=== PATIENT | male | born 1960 | race Caucasian/White ===

== ENCOUNTER 2017-02-24 11:32 | Emergency (ER) | payer OTHER ==
[~2017-02-24] VITALS: Ht 170.2 cm; Wt 74.8 kg
[~2017-02-24 11:32] MED LIST: FLEXERIL10 MG PO; HUMALOG 100U100 U/ML SC; IBU-6600 MG PO; LANTUS SOLOS100 U/ML SC; PANTOPRAZOLE SO40 MG PO; VICODIN 300 MG-1 TAB PO
--- NOTE | 2017-02-24 11:51 | ED GENERAL ADULT ---
History of Present Illness General Chief Complaint: General Adult Stated Complaint: HIGH BLOOD SUGAR, VOMITING Source: patient, old records Exam Limitations: no limitations Vital Signs & Intake/Output Vital Signs & Intake/Output Vital Signs Date Time Temp Pulse Resp B/P B/P Pulse O2 O2 Flow FiO2 Mean Ox Delivery Rate 02/24 1637 98.7 62 16 150/84 98 Room Air 02/24 1350 99.0 72 20 148/68 95 Room Air 02/24 1135 99.4 83 15 144/76 96 Room Air Room Air Allergies Coded Allergies: No Known Allergies (02/24/17) Reconcile Medications Insulin Glargine,Hum.rec.anlog (Lantus Solostar) 100 UNIT/ML (3 ML) INSULN.PEN 24 UNITS SC QPM DM (Reported) Insulin Lispro (Humalog Kwikpen U-100) 100 UNIT/ML INSULN.PEN DM (Reported) Lisinopril 10 MG TABLET 1 TAB PO DAILY BP (Reported) Ondansetron (Zofran Odt) 4 MG TAB.RAPDIS 1 TAB SL TID nausea Oxycodone HCl 10 MG TABLET 1 TAB PO Q6H PAIN (Reported) Warfarin Sodium (Unknown Strength) TABLET (Unknown Dose) UNKNOWN (Reported) Triage Note: PT TO ED FOR C/C HIGH BLOOD SUGAR AND ABD PAIN, NAUSEA AND VOMITING SINCE LAST NIGHT, DENIES BLOOD. DENIES DIARRHEA. INCREASED THIRST, NO CHANGE IN URINATION. F/S 214 IN TRIAGE. Triage Nurses Notes Reviewed? yes Onset: Abrupt Duration: hour(s):, day(s): (yesterday) Timing: single episode today Severity: moderate, severe Severity Numbers: 10 No Modifying Factors: none HPI: 48-year-old male with history of insulin-dependent diabetes presents complaining of abdominal pain, nausea vomiting sweats and chills for the past day. Patient reports that yesterday abdominal pain started suddenly and is located diffusely in his abdomen and does not radiate. He rates pain as a 10 out of 10. Pain is associated with nausea and vomiting. He feels as though this is similar to previous episodes where he was diagnosed with DKA. He has not used his insulin yet today but usually uses 24 units of Lantus once daily and insulin sliding scale insulin as needed. He has not been compliant with insulin in the past he feels his sugars usually run in the high 100s to low 200s. No diarrhea fever urinary symptoms chest pain shortness of breath. (KORIN BERGER PA-C) Past History Travel History Traveled to [place] past 21 day No Medical History Any Pertinent Medical History? see below for history Neurological: NEUROPATHY Cardiovascular: hypertension Endocrine: DIABETES TYPE I Blood Disorders: NONE Cancer(s): NONE Surgical History Surgical History: non-contributory Psychosocial History Who do you live with Patient/Self What is your primary language [place] Tobacco Use: Never used ETOH Use: denies use Illicit Drug Use: denies illicit drug use Family History Hx Contributory? Yes (KORIN BERGER PA-C) Review of Systems Review of Systems Constitutional: Reports: see HPI, chills, diaphoresis, weakness. EENTM: Reports: no symptoms. Respiratory: Reports: no symptoms. Cardiovascular: Reports: no symptoms. GI: Reports: see HPI, abdominal pain, nausea, vomiting. Genitourinary: Reports: no symptoms. Musculoskeletal: Reports: no symptoms. Skin: Reports: no symptoms. Neurological/Psychological: Reports: no symptoms. Hematologic/Endocrine: Reports: no symptoms. Immunologic/Allergic: Reports: no symptoms. All Other Systems: Reviewed and Negative (KORIN BERGER PA-C) Physical Exam Physical Exam General Appearance: well developed/nourished, alert, awake, anxious, mild distress Head: atraumatic, normal appearance Eyes: Bilateral: normal appearance, PERRL, EOMI. Ears, Nose, Throat: normal pharynx, normal ENT inspection, hearing grossly normal Neck: normal inspection, supple, full range of motion Respiratory: normal breath sounds, chest non-tender, no respiratory distress, lungs clear Cardiovascular: regular rate/rhythm Peripheral Pulses: 2+ radial (R), 2+ radial (L) Gastrointestinal: normal bowel sounds, no organomegaly, guarding, tenderness ( DIFFUSE ) Back: normal inspection, normal range of motion, no vertebral tenderness Extremities: normal inspection, normal capillary refill, normal range of motion, no edema Neurologic/Psych: no motor/sensory deficits, awake, alert, oriented x 3, normal gait, normal mood/affect Reflexes: 2+: knee (R), knee (L). Skin: intact, normal color, warm/dry Lymphatic: no anterior cervical sd Comments: There is a large right-sided scrotal hydrocele present on exam. It is nontender no overlying erythema or bruising. Core Measures ACS in differential dx? No CVA/TIA Diagnosis: No Severe Sepsis Present: No Septic Shock Present: No (AB KENDALL,KORIN) Progress Differential Diagnoses I considered the following diagnoses in my evaluation of the patient: DKA, HHS, UTI, pyelonephritis, appendicitis, gastritis, pancreatitis, cholecystitis, SBO, diverticulitis Plan of Care: Orders Procedure Date/time Status Add-on Test (ER Only) 02/24 1253 Active LIPASE 02/24 1220 Complete ACETONE 02/24 1220 Complete MIXED VENOUS BLOOD GAS (GEN) 02/24 1214 Complete URINALYSIS 02/24 1208 Active TROPONIN LEVEL 02/24 1208 Complete COMPREHENSIVE METABOLIC PANEL 02/24 1208 Complete CBC WITHOUT DIFFERENTIAL 02/24 1208 Complete Laboratory Tests 02/24/17 1220: Bicarbonate Actual 34 H, Mixed VBG pH 7.48 H, Mixed VBG pCO2 46, Mixed VBG O2 Saturation 33 L, Carboxyhemoglobin 1.9, O2 Concentration % RA, O2 Delivery Method RA, Anion Gap 9, Estimated GFR > 60, BUN/Creatinine Ratio 19.1, Glucose 251 H, Calcium 9.9, Total Bilirubin 1.2, AST 16 L, ALT 31, Alkaline Phosphatase 69, Troponin I < 0.01, Total Protein 6.9, Albumin 3.8, Globulin 3.1, Albumin/Globulin Ratio 1.2, Lipase < 10 L, CBC w Diff MAN DIFF ORDERED, RBC 4.89, MCV 86.3, MCH 28.4, RDW 14.5, MPV 8.3, Gran % 94.7 H, Lymphocytes % 2.8 L, Monocytes % 2.2, Eosinophils % 0.1, Basophils % 0.2, Absolute Granulocytes 17.0 H, Segmented Neutrophils 88 H, Band Neutrophils 6 H, Absolute Lymphocytes 0.5 L, Lymphocytes 4 L, Monocytes 2, Absolute Monocytes 0.4, Absolute Eosinophils 0, Absolute Basophils 0, Platelet Estimate VERIFIED BY SMEAR, Normocytic RBCs VERIFIED, Normochromic RBCs VERIFIED, PUBS MCHC 32.9 L, Phlebotomy Draw Site LAC, Acetone Level NEGATIVE 02/24/17 1209: Acetone Level Cancelled 12:57 Labs drawn and patient evaluated. He'll be given Zofran IV fluids and 2 mg of morphine IV and reevaluate after labs are back. 1:27 PM: Patient reevaluated after fluids Zofran and morphine given. He reports his abdominal pain has decreased but is still present. No longer feeling nauseous. Blood work is back shows a white count of 17.9 with a left shift. Acetone negative no anion gap. Blood sugar 251. Patient was given a GI cocktail and reevaluated. 2:17 PM: Patient reevaluated still reporting abdominal pain but it is improvmed from previous. He will be given another 2 mg of IV morphine and CT scan of the abdomen and pelvis will be ordered. blood work is otherwise within normal limits other than a white blood cell count with left shift. CT scan pending. 4:[address] scan shows a large right-sided scrotal hydrocele but is otherwise within normal limits. White blood cell count may be related to persistent vomiting. Patient was PO challenged with 2 large cups of water which he tolerated well. NO vomiting or abdominal pain. White blood cell count may be present due to repeated vomiting. Patient is currently afebrile and there are no signs of infection on exam. Patient will be kept on a clear liquid diet for the next 24 hours and advance as tolerated. Patient will make a follow-up with a urologist and his primary care doctor this week. He'll return to the emergency department as needed with any worsening pain. Patient will be given Zofran as needed for nausea Tylenol as needed for pain. Patient will also use sliding scale insulin when he gets home. He refused any insulin in the emergency department. Discussed all results with patient he is nontoxic appearing and feeling much better. He is no longer having any abdominal pain and feels well. No nausea or vomiting in the emergency department. Patient is in agreement with the plan as above. Case discussed with Dr. Babcock who is in agreement with the plan. (AB KENDALL,KORIN) Diagnostic Imaging: Viewed by Me: CT Scan. Initial ED EKG: none Comments: EXAM TYPE: CAT - CT ABD & PELVIS W IV CONTRAST EXAMINATION: CT ABDOMEN AND PELVIS WITH CONTRAST CLINICAL INFORMATION: Abdominal pain. Elevated WBCs. COMPARISON: CT scan abdomen pelvis 11/28/2010. TECHNIQUE: Multidetector volumetric imaging was performed of the abdomen and pelvis after the IV administration of 95 mL of Optiray 320 intravenous contrast. Sagittal and coronal reformatted images were obtained on the technologist's workstation. DLP: 342.54 mGy-cm FINDINGS: LUNG BASES: Subpleural groundglass opacities at dependent lung at both lung bases consistent with atelectasis. LIVER, GALLBLADDER, AND BILIARY TREE: The liver is normal in size, shape, and attenuation. No focal hepatic lesion or biliary ductal dilatation is present. The gallbladder is unremarkable with no evidence of radiopaque gallstones, gallbladder wall thickening, or obvious pericholecystic inflammatory changes. PANCREAS: Unremarkable. SPLEEN: Unremarkable. ADRENAL GLANDS: Unremarkable. KIDNEYS AND URETERS: The kidneys are normal in size, shape, and attenuation. No hydronephrosis, hydroureter, or calculi seen. No perinephric stranding. BLADDER: Unremarkable. GASTROINTESTINAL TRACT: Moderate to large-volume of stool throughout the colon. No acute change of the bowel. No bowel obstruction. No bowel wall thickening or edema. The appendix is not identified. The small bowel loops are unremarkable. ABDOMINAL WALL: No ventral wall hernia. There is a large right-sided scrotal hydrocele measuring 9.6 x 7.3 cm on lowest slice axial image. The entire hydrocele though is not included in the study. LYMPH NODES: Normal. VASCULAR: Atherosclerotic vascular wall calcifications of aorta and iliac vessels without aneurysm. PELVIC VISCERA: Calcifications within the prostate. Prostate measures 4.3 cm transverse. OSSEOUS STRUCTURES: Unremarkable. IMPRESSION: 1. No acute abnormality CT scan abdomen pelvis. 2. Large right-sided scrotal hydrocele. DICTATED BY: WES CORNELL MD DATE/TIME DICTATED:02/24/171458 TRA[employer] MANAGER:LULY DATE/TIME TRANSCRIBED:02/24/171458 (KORIN BERGER PA-C) Departure Departure Disposition: HOME OR SELF CARE Condition: Stable Clinical Impression Primary Impression: Abdominal pain Secondary Impressions: Vomiting Referrals: DIAMOND MONDRAGON MD (PCP/Family) HERON WATSON MD Additional Instructions: Clear liquid diet for the next 24 hours and advance as tolerated. Use Zofran ODT as needed for nausea. Tylenol as needed for pain. Continue to check her sugars regularly and use sliding scale insulin as directed. Make a follow-up appt with a urologist and your primary care doctor this week. Return to emergency department as needed with any worsening pain. Review all results of today's visit with her primary care doctor. Departure Forms: Customer Survey General Discharge Information Prescriptions: Current Visit Scripts Ondansetron (Zofran Odt) 1 TAB SL TID #10 TAB (KORIN BERGER PA-C) PA/SENIOR ETL DEVELOPER Co-Sign Statement Statement: ED Attending supervision documentation- [] I saw and evaluated the patient. I have also reviewed all the pertinent lab results and diagnostic results. I agree with the findings and the plan of care as documented in the PA's/SENIOR ETL DEVELOPER's documentation. [X] I have reviewed the ED Record and agree with the PA's/SENIOR ETL DEVELOPER's documentation. [] Additions or exceptions (if any) to the PAs/SENIOR ETL DEVELOPER's note and plan are summarized below: [] (ANDERSON TOLEDO,ELEAZAR) Critical Care Note Critical Care Note Critical Care Time: non-applicable (KORIN BERGER PA-C)
[2017-02-24 12:37] LABS: ABSOLUTE BASOPHIL COUNT 0 /CUMM (0.0-0.2); ABSOLUTE EOSINOPHIL COUNT 0 /CUMM (0.0-0.7); ABSOLUTE LYMPH COUNT 0.5 /CUMM (1.2-3.4); ABSOLUTE MONOCYTE COUNT 0.4 /CUMM (0.10-0.60); BASOPHIL % 0.2 % (0.0-2.0); EOSINOPHIL % 0.1 % (0-5); HEMATOCRIT 42.2 % (42-52); MEAN CORPUSCULAR HGB 28.4 PG (27.0-31.0); MEAN CORPUSCULAR HGB CONC 32.9 G/DL (33.0-37.0); MEAN CORPUSCULAR VOLUME 86.3 FL (80.0-94.0); MEAN PLATELET VOLUME 8.3 FL (7.4-10.4); PLATELET COUNT 314 /CUMM (130-400); RBC DISTRIBUTION WIDTH 14.5 % (11.5-14.5); RED BLOOD CELL CT 4.89 /CUMM (4.70-6.10); WHITE BLOOD CELL COUNT 17.9 /CUMM (4.8-10.8)
[2017-02-24 12:44] LABS: GRANULOCYTE % 94.7 % (42.2-75.2)
--- NOTE | 2017-02-24 15:14 | CT SCAN REPORT ---
EXAMINATION: CT ABDOMEN AND PELVIS WITH CONTRAST CLINICAL INFORMATION: Abdominal pain. Elevated WBCs. COMPARISON: CT scan abdomen pelvis 11/28/2010. TECHNIQUE: Multidetector volumetric imaging was performed of the abdomen and pelvis after the IV administration of 95 mL of Optiray 320 intravenous contrast. Sagittal and coronal reformatted images were obtained on the technologist's workstation. DLP: 342.54 mGy-cm FINDINGS: LUNG BASES: Subpleural groundglass opacities at dependent lung at both lung bases consistent with atelectasis. LIVER, GALLBLADDER, AND BILIARY TREE: The liver is normal in size, shape, and attenuation. No focal hepatic lesion or biliary ductal dilatation is present. The gallbladder is unremarkable with no evidence of radiopaque gallstones, gallbladder wall thickening, or obvious pericholecystic inflammatory changes. PANCREAS: Unremarkable. SPLEEN: Unremarkable. ADRENAL GLANDS: Unremarkable. KIDNEYS AND URETERS: The kidneys are normal in size, shape, and attenuation. No hydronephrosis, hydroureter, or calculi seen. No perinephric stranding. BLADDER: Unremarkable. GASTROINTESTINAL TRACT: Moderate to large-volume of stool throughout the colon. No acute change of the bowel. No bowel obstruction. No bowel wall thickening or edema. The appendix is not identified. The small bowel loops are unremarkable. ABDOMINAL WALL: No ventral wall hernia. There is a large right-sided scrotal hydrocele measuring 9.6 x 7.3 cm on lowest slice axial image. The entire hydrocele though is not included in the study. LYMPH NODES: Normal. VASCULAR: Atherosclerotic vascular wall calcifications of aorta and iliac vessels without aneurysm. PELVIC VISCERA: Calcifications within the prostate. Prostate measures 4.3 cm transverse. OSSEOUS STRUCTURES: Unremarkable. IMPRESSION: 1. No acute abnormality CT scan abdomen pelvis. 2. Large right-sided scrotal hydrocele.
[2017-02-24] MEDS ORDERED: OXYCODONE HCL10 M2 PO (15:22)
[2017-02-24] MEDS ORDERED: LANTUS SOL100 UNIT/1 SC (15:22)
[2017-02-24] MEDS ORDERED: LISINOPRIL10 M1 PO (15:22)
[2017-02-24] MEDS ORDERED: WARFARIN SODIU7.5 M1 (15:22)
[2017-02-24] MEDS ORDERED: HUMALOG KW100 UNIT/1 SC (15:23)
[2017-02-24] MEDS ORDERED: ZOFRAN ODT4 M1 SL (16:22)
[2017-02-24 16:37] VITALS: BP 150/84
== END 2017-02-24 16:43 ==
LOC: ERH 11:32
PROVIDERS: Physician Assistant Medical
DX: R10.84 Generalized abdominal pain (principal); R11.2 Nausea with vomiting, unspecified
CPT/HCPCS: 74177; 96374; 96375; 96376; J2405